=== PATIENT | male | born 1965 | race Caucasian/White ===

== ENCOUNTER 2018-12-27 18:20 | Emergency (ER) | payer SELFPAY ==
[~2018-12-27] VITALS: Ht 182.9 cm; Wt 93.0 kg
[2018-12-27] MEDS ORDERED: DIPHTH,PERTUSS(ACELL),TET TOX 0.5 ML DISP.SYRIN. VAX IM ONE (19:30)
[2018-12-27] MEDS ORDERED: LIDOCAINE 1%/EPI 1:100,000 20 ML VIAL. INJ ONE (20:30)
[2018-12-27] MEDS ORDERED: HYDROcodone/APAP 5/325MG 1 TAB TABLET PO ONE (20:30)
[2018-12-27] MEDS ORDERED: AMOXICILLIN/K CLAV 875/125MG TABLET. PO ONE (21:00)
--- NOTE | 2018-12-27 21:39 | PHYS DOC ---
Past Medical History Past Medical History: No Pertinent History (ROBERTA BACA APRN) Past Surgical History: No Surgical History (ROBERTA BACA APRN) Alcohol Use: Occasionally Drug Use: None (ROBERTA BACA APRN) Adult General Chief Complaint Chief Complaint: LACERATION/AVULSION HPI HPI Patient is a 53 year old male who presents to the ER with complaints of left index finger pain and laceration after getting his finger caught in the fan of a motor today. Pt is unsure when his last tetanus immunization was. He denies any decreased ROM of the affected finger, numbness, tingling, or weakness. Currently he rates his pain a 1-2/10 on the pain scale and denies any need for pain medication at this time. (ROBERTA BACA APRN) Review of Systems Review of Systems Musculoskeletal: See HPI Integument: See HPI Neurologic: Denies headache, focal weakness or sensory changes [] All other systems were reviewed and found to be within normal limits, except as documented in this note. (ROBERTA BACA APRN) Current Medications Current Medications Current Medications Medications (Trade) Dose Ordered Sig/Carlyle Start Time Stop Time Status Last Admin Dose Admin Acetaminophen/ Hydrocodone Bitart (Lortab 5/325) 1 tab 1X ONCE 12/27/18 20:30 12/27/18 20:31 DC 12/27/18 20:34 1 TAB Amoxicillin/ Clavulanate Potassium (Augmentin 875/ 125mg) 1 tab 1X ONCE 12/27/18 21:00 12/27/18 21:01 DC 12/27/18 21:05 1 TAB Diphtheria/ Tetanus/Acell Pertussis (Boostrix) 0.5 ml ONCE ONCE 12/27/18 19:30 12/27/18 19:31 DC 12/27/18 19:55 0.5 ML Lidocaine/ Epinephrine (LIDOCAINE 1%-EPI 1:100,000 Multi-Dose) 20 ml 1X ONCE 12/27/18 20:30 12/27/18 20:31 DC 12/27/18 20:34 20 ML (ZULAY GILLIAM DO) Allergies Allergies Allergies Coded Allergies Type Severity Reaction Last Updated Verified No Known Drug Allergies 12/27/18 No (ZULAY GILLIAM DO) Physical Exam Physical Exam Constitutional: Well developed, well nourished, no acute distress, non-toxic appearance. [] HENT: Normocephalic, atraumatic, bilateral external ears normal, nose normal. [] Eyes: PERRLA, conjunctiva normal, no discharge. [] Neck: Normal range of motion, no stridor. [] Lungs & Thorax: Respirations even and unlabored, no retractions, no respiratory distress Skin: Warm, dry, no erythema, no rash; 4 cm laceration noted at the base of the second phalanx of left index finger, appears to be open fracture, pain controlled with pressure held by patient, L index finger cap refill less than 2 seconds[] Extremities: Left index finger/ left upper extremity: No cyanosis, no clubbing, ROM intact, 2+ radial pulse Neurologic: Alert and oriented X 3, normal motor function, normal sensory function, no focal deficits noted. [] Psychologic: Affect normal, judgement normal, mood normal. [] (ROBERTA BACA APRN) Current Patient Data Vital Signs Vital Signs Date Time Temp Pulse Resp B/P (MAP) Pulse Ox O2 Delivery O2 Flow Rate FiO2 12/27/18 22:35 79 148/90 (109) 95 Room Air 12/27/18 20:34 19 12/27/18 18:57 97.7 97.7 (ZULAY GILLIAM DO) EKG EKG [] (ROBERTA BACA APRN) Radiology/Procedures Radiology/Procedures PROCEDURE: FINGER(S) LEFT EXAM: PA view of the left hand, oblique and lateral views of the left index finger DATE: 12/27/2018 7:34 PM INDICATION: LACERATION TO LEFT INDEX FINGER AFTER GETTING CAUGHT IN BLADE COMPARISON: No Prior FINDINGS: There is soft tissue swelling about the left index finger. There is a transverse fracture through the proximal shaft of the middle phalanx of the left index finger with minimal radial and palmar displacement and trace apex palmar angulation. No definite articular surface extension. IMPRESSION: 1. Minimally displaced middle phalanx left index finger fracture without definite articular surface extension or incongruity. 2. Associated index finger soft tissue swelling. Laceration Repair by me: Anesthesia: 1% lidocaine with epi digital block Location: left index finger Tendon/Joint/Nerves: possible tendon sheath injury located at second distal phalanx Foreign body: None detected after copious irrigation and exploration with 230 ml of sterile NS Technique: 14 Simple Interrupted Sutures with 4-0 Ethilon Complexity: No subcutaneous sutures/mucosal repair/edge excision Post Closure Length: 4 cm Patient's bleeding was easily controlled in the department and there is no indication of anemia. No evidence of compartment syndrome, neurologic injury, vascular injury, open joint, tendon laceration, or foreign body. Patient is appropriate for outpatient follow up. 48 hour wound check (ROBERTA BACA APRN) Course & Med Decision Making Course & Med Decision Making Pertinent Labs and Imaging studies reviewed. (See chart for details) Dx: displaced open fracture of middle phalanx of left index finger, left index finger laceration, need for Tdap [address] Urrutia refer patient to hand surgeon for follow up. Laceration repair as documented above. Dressing and splint applied by nurse. 0 contacted for follow up with hand specialist. Per pt will follow up with Dr. Almanzar tomorrow in clinic, will call patient in the morning to notify of appointment time. Images clouded to [facility], face sheet faxed to the attention of Augie as requested. Prescriptions written for augmentin 875 mg and norco 5/325 #20, return to ER if symptoms worsen. Patient verbalized an understanding of home care, medications, follow-up, and return to ED instructions and was in agreement with the plan of care. (ROBERTA BACA APRN) Dragon Disclaimer Dragon Disclaimer This electronic medical record was generated, in whole or in part, using a voice recognition dictation system. (ROBERTA BACA APRN) Departure Departure Impression: Primary Impression: Displaced fracture of middle phalanx of left index finger, initial encounter for open fracture Additional Impressions: Laceration of left index finger without foreign body without damage to nail Need for Tdap vaccination Disposition: 01 HOME, SELF-CARE Condition: STABLE Referrals: NO PCP (PCP) Patient Instructions: Finger Fracture, [id number], Laceration Care, Adult, [id number] Additional Instructions: Fill the prescriptions and use them as directed. Leave the dressing and splint that was placed in the ER tonight in place until your follow up appointment. [facility] will contact you tomorrow morning to set up a follow-up appointment with Dr. Endress tomorrow morning. Advise [facility] that your x-ray has been sent over via the cloud. Return to the ER if your symptoms worsen. Scripts Hydrocodone Bit/Acetaminophen (HYDROCODONE-APAP 5-325 ) 1 Tab Tablet 1 TAB PO PRN Q6HRS PRN for PAIN for 5 Days, #20 TAB 0 Refills Prov: ROBERTA BACA SENIOR INTEGRATION DEVELOPER 12/27/18 Amoxicillin/Potassium Clav (AUGMENTIN 875-125 TABLET) 1 Each Tablet 1 TAB PO BID, #20 TAB 0 Refills Prov: ROBERTA BACA SENIOR INTEGRATION DEVELOPER 12/27/18 Attending Signature Attending Signature I have reviewed the PA/HYPERBARIC TECH's note and plan of care. I was available for consultation as needed during the patient's visit in the emergency department. I agree with the clinical impression, plan, and disposition. (ZULAY GILLIAM DO) Problem Qualifiers Additional Impressions: Laceration of left index finger without foreign body without damage to nail Encounter type: initial encounter Qualified Codes: S61.211A - Laceration without foreign body of left index finger without damage to nail, initial encounter ROBERTA BACA APRN Dec 27, 2018 21:38 ZULAY GILLIAM DO Jan 16, 2019 12:48
[2018-12-27 22:35] VITALS: BP 148/90
--- NOTE | 2018-12-27 22:51 | RAD ---
EXAM: PA view of the left hand, oblique and lateral views of the left index finger DATE: 12/27/2018 7:34 PM INDICATION: LACERATION TO LEFT INDEX FINGER AFTER GETTING CAUGHT IN BLADE COMPARISON: No Prior FINDINGS: There is soft tissue swelling about the left index finger. There is a transverse fracture through the proximal shaft of the middle phalanx of the left index finger with minimal radial and palmar displacement and trace apex palmar angulation. No definite articular surface extension. IMPRESSION: 1. Minimally displaced middle phalanx left index finger fracture without definite articular surface extension or incongruity. 2. Associated index finger soft tissue swelling. Electronically signed by: Clive Diaz MD (12/27/2018 10:48 PM) [id number]
[2018-12-27] MEDS ORDERED: HYDR-2761 PO (23:21)
[2018-12-27] MEDS ORDERED: AMOX1TAB61 PO (23:21)
== END 2018-12-27 23:26 | disposition home or self-care (01) ==
LOC: ER 18:20
DX: S62.621A Displaced fracture of middle phalanx of left index finger, initial encounter for closed fracture (principal); W23.0XXA Caught, crushed, jammed, or pinched between moving objects, initial encounter; Y93.89 Activity, other specified; Y92.89 Other specified places as the place of occurrence of the external cause; Y99.8 Other external cause status
CPT/HCPCS: 12002; 29130; 73140; 90471; 90715; 99283; J3490